=== PATIENT | female | born 1980 | race Asian ===

== ENCOUNTER 2018-08-17 20:29 | Emergency (ER) | payer OTHER ==
[~2018-08-17] VITALS: Ht 157.5 cm; Wt 55.0 kg
--- NOTE | 2018-08-17 20:46 | NUR ---
Pt c/o right sided lower back pain starting this evening after playing with kids on ground, reports a twisting motion then pain when standing. Pt states "I dont need an x ray it is all muscular" Awaiting md haro
[2018-08-17] MEDS ORDERED: LEVO25TA2 PO (20:58)
[2018-08-17] MEDS ORDERED: HYDROmorphone 2 MG/ML, 1ML ONE (21:15)
[2018-08-17] MEDS ORDERED: METHOCARBAMOL 500 MG TABLET ONE (21:15)
[2018-08-17] MEDS ORDERED: HYDROmorphone 1 MG/ML, 1ML INJ IM ONE (21:30)
[2018-08-17] MEDS ORDERED: METHOCARBAMOL 750 MG TABLET PO ONE (21:30)
--- NOTE | 2018-08-17 21:33 | NUR ---
REPORT RECEIVED FROM HA NEWMAN. CARE ASSUMED.
--- NOTE | 2018-08-17 22:10 | NUR ---
PT STATES PAIN IS GONE BUT IS NOW "NOT FEELING WELL", O2 SAT 99% ON RA, PULSE 90 AND REGULAR. PT DRINKING FLUIDS AND PLACED IN POSITION OF COMFORT. PT UP FOR RECHECK.
[2018-08-17] MEDS ORDERED: ONDANSETRON ODT 4 MG ONE (22:55)
--- NOTE | 2018-08-17 22:59 | NUR ---
PT HAVING N/V, ZOFRAN GIVEN ORDERS. VS UPDATED.
[2018-08-17] MEDS ORDERED: ONDANSETRON ODT 4 MG PO ONE (23:00)
--- NOTE | 2018-08-17 23:23 | NUR ---
PT STILL HAVING SOME VOMITING AND STATES BACK PAIN RETURNING. NOTIFIED.
[2018-08-18] MEDS ORDERED: PROMETHAZINE 25 MG/ML, 1ML IM ONE
--- NOTE | 2018-08-18 00:19 | NUR ---
PT DC'D HOME WITH RX X 2 AND UNDERSTANDING OF INSTRUCTION. PT TO DC DESK BY WC ACCOMPANIED BY .
[2018-08-18 00:20] VITALS: BP 97/48
== END 2018-08-18 00:22 | disposition home or self-care (01) ==
LOC: ED 23:08
DX: M54.5 Low back pain (principal); E03.9 Hypothyroidism, unspecified
CPT/HCPCS: 96372; 99283; J1170; Q0162